=== PATIENT | female | born 1985 | race Caucasian/White ===

== ENCOUNTER → 2020-07-10 13:34 | Outpatient (BNVA) | payer SELFPAY | PROVIDERS: Referring Provider Nurse Practitioner Family; Visit Provider Podiatrist Foot & Ankle Surgery | DX: M79.672 Pain in left foot (principal); M79.671 Pain in right foot; M21.612 Bunion of left foot; M21.611 Bunion of right foot | CPT/HCPCS: 73610; 73630 ==

== ENCOUNTER 2020-07-10 15:53 | Outpatient (CLI) | payer SELFPAY | END 2020-07-10 15:54 | disposition home or self-care (01) | LOC: SPT 16:17 | PROVIDERS: Visit Provider Podiatrist Foot & Ankle Surgery | DX: Z46.89 Encounter for fitting and adjustment of other specified devices (principal); M79.671 Pain in right foot | CPT/HCPCS: L1902 ==